=== PATIENT | female | born 1995 | race Caucasian/White ===

== ENCOUNTER 2022-07-30 10:12 | Outpatient (CLI) | payer OTHER, SELFPAY ==
[2022-07-30 19:04] LABS: Basophils Percent Auto 0.2 % (0.2-1.2); Eosinophils Percent Auto 0.2 % (0-4.4); Hematocrit 44.7 % (37.0-47.0); Hemoglobin 15.2 g/dL (12.0-15.0); Immature Granulocyte Absolute 0.03 K/mm3 (0.00-0.031); Immature Granulocyte Percent A 0.3 % (0-0.5); Lymphocytes Absolute Auto 2.08 K/mm3 (0.9-3.2); Lymphocytes Percent Auto 24.2 % (18.3-44.2); Mean Corpuscular Hemoglobin 30.9 pg (26-34); Mean Corpuscular Volume 90.9 fl (80-100); Mean Platelet Volume 9.8 fl (7.4-10.4); Monocytes Absolute Auto 0.7 K/mm3 (0.1-0.6); Monocytes Percent Auto 7.7 % (2.6-8.5); Neutrophils Absolute Auto 5.8 K/mm3 (1.3-6.7); Neutrophils Percent Auto 67.4 % (45.5-73.1); Platelet Count Result 358 k/mm3 (150-375); Red Blood Count 4.92 M/mm3 (4.2-5.4); Red Cell Distribution Width 12.6 % (11.5-14.5); White Blood Count 8.6 K/mm3 (4.5-10.0)
[2022-07-30 20:00] LABS: Alanine Aminotransferase 23 U/L (6-35); Albumin Level 4.3 g/dL (3.5-5.1); Alkaline Phosphatase 42 U/L (38-126); Anion Gap 6 mmol/L (8-16); Aspartate Amino Transferase 41 U/L (14-36); Bilirubin,Total 0.6 mg/dL (0.2-1.3); Blood Urea Nitrogen 15 mg/dL (7-17); Calcium 9.4 mg/dL (8.4-10.2); Carbon Dioxide 26 mmol/L (22-30); Chloride 105 mmol/L (98-107); Cholesterol 176 mg/dL (0-200); Estimated Glomerular Filt Rate > 60; Glucose 68 mg/dL (65-110); HDL Direct 56 mg/dL; Potassium 3.8 mmol/L (3.4-5.0); Sodium 137 mmol/L (137-145); Triglycerides 168 mg/dL (<150)
[2022-07-30 20:14] LABS: LDL Cholesterol Direct 85 mg/dL
== END 2022-07-30 10:13 | disposition home or self-care (01) ==
LOC: ANHGOSHLAB 10:15
PROVIDERS: PCP Internal Medicine; Visit Provider Nurse Practitioner
DX: E66.01 Morbid (severe) obesity due to excess calories (principal); Z68.41 Body mass index [BMI] 40.0-44.9, adult
CPT/HCPCS: 36415; 80053; 80061; 84443; 85025

== ENCOUNTER 2023-09-17 15:48 | Outpatient (CLI) | payer OTHER, SELFPAY ==
[2023-09-17 18:45] LABS: Basophils Percent Auto 0.2 % (0.2-1.2); Eosinophils Absolute Auto 0.1 K/mm3 (0-0.3); Eosinophils Percent Auto 0.6 % (0-4.4); Immature Granulocyte Absolute 0.03 K/mm3 (0.00-0.031); Immature Granulocyte Percent A 0.3 % (0-0.5); Lymphocytes Absolute Auto 2.59 K/mm3 (0.9-3.2); Lymphocytes Percent Auto 25.7 % (18.3-44.2); Mean Corpuscular HGB Conc 33.3 g/dl (32-36); Mean Corpuscular Hemoglobin 30.4 pg (26-34); Mean Corpuscular Volume 91.3 fl (80-100); Mean Platelet Volume 9.8 fl (7.4-10.4); Monocytes Absolute Auto 0.7 K/mm3 (0.1-0.6); Monocytes Percent Auto 6.8 % (2.6-8.5); Neutrophils Absolute Auto 6.7 K/mm3 (1.3-6.7); Neutrophils Percent Auto 66.4 % (45.5-73.1); Platelet Count Result 297 k/mm3 (150-375); Red Blood Count 4.93 M/mm3 (4.2-5.4); Red Cell Distribution Width 12.5 % (11.5-14.5); White Blood Count 10.1 K/mm3 (4.5-10.0)
[2023-09-17 19:06] LABS: Alanine Aminotransferase 29 U/L (6-35); Alkaline Phosphatase 38 U/L (38-126); Anion Gap 8 mmol/L (4-12); Aspartate Amino Transferase 66 U/L (14-36); Bilirubin,Total 0.6 mg/dL (0.2-1.3); Blood Urea Nitrogen 16 mg/dL (7-17); Calcium 9.2 mg/dL (8.4-10.2); Carbon Dioxide 21 mmol/L (22-30); Chloride 109 mmol/L (98-107); Estimated Glomerular Filt Rate > 60; Glucose 100 mg/dL (65-110); Potassium 4.2 mmol/L (3.4-5.0); Sodium 138 mmol/L (137-145)
[2023-09-17 19:08] LABS: Rheumatoid Factor < 12.0 IU/ML (<12)
[2023-09-17 19:33] LABS: Thyroid Stimulating Hormone 0.874 uIU/mL (0.465-4.680)
[2023-09-17 19:37] LABS: Vitamin D 25 Hydroxy 42.4 ng/mL
[2023-09-18 12:24] LABS: ANA Cascade Screen NEGATIVE (NEGATIVE)
== END 2023-09-17 15:49 | disposition home or self-care (01) ==
PROVIDERS: PCP Internal Medicine; Visit Provider Nurse Practitioner
DX: M25.50 Pain in unspecified joint (principal); R20.0 Anesthesia of skin; R20.2 Paresthesia of skin; R63.5 Abnormal weight gain; Z68.41 Body mass index [BMI] 40.0-44.9, adult
CPT/HCPCS: 36415; 80053; 82306; 82607; 84443; 85025; 86038; 86225; 86235; 86364; 86430